=== PATIENT | male | born 1975 | race Two or more races ===

== ENCOUNTER 2017-11-21 15:13 | Emergency (ER) | payer OTHER ==
[2017-11-21] MEDS: IPRATRPIUM/ALBUTEROL 0.5/2.5MG 3 ML NEBU. NEB (15:37)
[2017-11-21] MEDS: cefTRIAXone IM 1 GM VIAL IM (16:19)
[2017-11-21] MEDS: BENZONATATE 100 MG CAPSULE. PO (16:21)
== END 2017-11-21 16:26 | disposition home or self-care (01) ==
LOC: ER 15:13
DX: J20.9 Acute bronchitis, unspecified (principal); J18.9 Pneumonia, unspecified organism; E11.9 Type 2 diabetes mellitus without complications
CPT/HCPCS: 71046; 94640; 96372; 99284-25; J0696; J7620